=== PATIENT | male | born 2000 | race Two or more races ===

== ENCOUNTER 2020-05-24 08:54 | Emergency (ER) | payer BC ==
--- NOTE | 2020-05-24 10:05 | EDM.PDOC ---
ED HPI GENERAL MEDICAL PROBLEM - General Chief Complaint: Respiratory Problem Stated Complaint: COUGH/DIARRHEA/CHILLS/NAUSEOUS Time Seen by Provider: 05/24/20 09:16 Source of Information: Reports: Patient, RN Notes Reviewed - History of Present Illness INITIAL COMMENTS - FREE TEXT/NARRATIVE: 19 yr old male had onset of cough, chills, myalgias, diarrhea about 3 days ago. His girlfriend recently dx's with covid so has a strong exposure hx. No hx of pulmonary problems. Not currently short of breath. Other Treatments FORENSIC EXAMINER: theraflu last dose 0700 - Related Data Allergies Allergy/AdvReac Type Severity Reaction Status Date / Time No Known Allergies Allergy Verified 05/24/20 09:05 Home Meds: Home Meds . [No Known Home Meds] 05/24/20 [History] Past Medical History HEENT History: Reports: Impaired Vision Cardiovascular History: Reports: None Respiratory History: Reports: None Gastrointestinal History: Reports: None Genitourinary History: Reports: Other (See Below) Other Genitourinary History: has hx of increased protein in urine. Sees a specialist in [place] Musculoskeletal History: Reports: None Neurological History: Reports: None Psychiatric History: Reports: None Endocrine/Metabolic History: Reports: None Hematologic History: Reports: None Immunologic History: Reports: None Oncologic (Cancer) History: Reports: None Dermatologic History: Reports: None - Infectious Disease History Infectious Disease History: Reports: Other (See Below) Other Infectious Disease History: COVID girlfriend tested positive, one week ago. - Past Surgical History Head Surgeries/Procedures: Reports: None GI Surgical History: Reports: None Social & Family History - Family History Family Medical History: Noncontributory HEENT: Reports: None Cardiac: Reports: None Respiratory: Reports: None GI: Reports: None : Reports: None OBGYN: Reports: None Musculoskeletal: Reports: None Neurological: Reports: None Psychiatric: Reports: None Endocrine/Metabolic: Reports: None Hematologic: Reports: None Immunologic: Reports: None Oncologic: Reports: None - Tobacco Use Smoking Status *Q: Never Smoker - Caffeine Use Caffeine Use: Reports: None - Recreational Drug Use Recreational Drug Use: No ED ROS GENERAL - Review of Systems Review Of Systems: See Below Constitutional: Reports: Chills. Denies: Fever HEENT: Reports: Rhinitis (mild). Denies: Throat Pain Respiratory: Reports: Cough. Denies: Shortness of Breath Cardiovascular: Denies: Chest Pain Endocrine: Reports: Fatigue GI/Abdominal: Reports: Diarrhea. Denies: Abdominal Pain, Vomiting Musculoskeletal: Reports: Other (generalized achiness) Skin: Denies: Rash ED EXAM, GENERAL - Physical Exam Exam: See Below General Appearance: Alert, No Apparent Distress Respiratory/Chest: No Respiratory Distress, Lungs Clear, Normal Breath Sounds. No: Rhonchi, Wheezing Cardiovascular: Regular Rate, Rhythm Extremities: Normal Inspection, Normal Range of Motion Neurological: Alert, Oriented, No Motor/Sensory Deficits Skin Exam: Warm, Dry, Normal Color Course - Vital Signs Last Recorded V/S: Last Vital Signs Temp 97.2 F 05/24/20 09:07 Pulse 78 05/24/20 09:07 Resp 16 05/24/20 09:07 BP 135/77 05/24/20 09:07 Pulse Ox 94 L 05/24/20 09:07 - Orders/Labs/Meds Orders: Active Orders 24 hr Category Date Time Status Chest 1V Frontal [CR] Stat Exams 05/24/20 09:17 Taken CORONAVIRUS COVID-19 PCR [facility] Stat Lab 05/24/20 09:47 Ordered - Re-Assessments/Exams Free Text/Narrative Re-Assessment/Exam: 05/24/20 10:23 Pt has covid based on sx and strong exposure hx. Have swabbed him for the state lab. Discharge instr. as documented. Departure - Departure Time of Disposition: 10:03 Disposition: Home, Self-Care 01 Condition: Fair Clinical Impression: COVID-19 determined by clinical diagnostic criteria - Discharge Information Instructions: COVID-19 Referrals: PCP,Not In Area [Primary Care Provider] - Forms: ED Department Discharge Additional Instructions: Self isolate for the next 10 to 14 days. Rest. Drink plenty of water to maintain hydration. A covid screen has been collected, results of the screen will be called to you when available, usually in about 3 days. Regardless of the test results you have covid infection based on your current clinical symptoms. Return to ED if you do experience severe difficulty breathing or otherwise as needed. Sepsis Event Note (ED) - Evaluation Sepsis Screening Result: No Definite Risk - Focused Exam Vital Signs: Vital Signs Temp Pulse Resp BP Pulse Ox 05/24/20 09:07 97.2 F 78 16 135/77 94 L - My Orders Last 24 Hours: My Active Orders 05/24/20 09:17 Chest 1V Frontal [CR] Stat 05/24/20 09:47 CORONAVIRUS COVID-19 PCR [facility] Stat - Assessment/Plan Last 24 Hours: My Active Orders 05/24/20 09:17 Chest 1V Frontal [CR] Stat 05/24/20 09:47 CORONAVIRUS COVID-19 PCR [facility] Stat
--- NOTE | 2020-05-24 10:41 | CR ---
Chest: Portable view of the chest was obtained. Comparison: No prior chest imaging is available. Patchy areas of increased density noted within the right lung base and lesser within the left lung base. Upper lungs are clear. Heart size and mediastinum are normal. Bony structures are unremarkable. Impression: 1. Areas of increased density within both lung bases, worse on the right side. Findings presumably represent areas of pneumonia which could be bacterial or viral. Diagnostic code #3 This report was dictated in MDT
== END 2020-05-24 10:26 | disposition home or self-care (01) ==
LOC: JD.ED 08:54
DX: U07.1 COVID-19 (principal)
CPT/HCPCS: 71045; 71045-26; 99282; 99284-25; U0002